=== PATIENT | male | born 1960 | race Caucasian/White ===

== ENCOUNTER 2024-10-09 00:15 | Outpatient (CLI) | payer MEDICARE, SELFPAY ==
--- NOTE | 2024-10-09 07:30 | DI.US_ITS ---
APPROVED REPORT EXAM: Comprehensive 2D, Doppler, and color-flow Echocardiogram Patient Location: Out-Patient Grinding Wheel Operator: Sara Powers RDCS (AE) Indications: Cardiomyopathy, ASCVD Other Information Study Quality: Fair. Technically limited study due to body habitus. Conclusion Normal left ventricular wall thickness and chamber size. Ejection fraction biplane is 32%. Visually EF with appears to be 35 to 40% with inferoapical apical and anteroapical akinesis. The septum is hypocontractile Normal right ventricular size and function Both atria are normal in size There are no structural valvular abnormalities Mild to moderate mitral regurgitation Wall motion Left Ventricle The left ventricle is normal size. Left ventricular systolic function is moderately decreased. There is normal left ventricular wall thickness. Regional wall motion abnormalities are noted. There is no ventricular septal defect visualized. LVEF is 32%. Right Ventricle Right ventricle is grossly normal in size. Right ventricular systolic function is grossly normal. Atria The left atrium size is normal. The right atrium size is normal. The interatrial septum is intact with no evidence for an atrial septal defect. Aortic Valve The aortic valve is normal in structure. Aortic valve is trileaflet. There is no aortic valvular stenosis. No aortic regurgitation is present. Mitral Valve The mitral valve is normal in structure. No evidence of mitral valve stenosis. Mild to moderate mitral regurgitation. Tricuspid Valve The tricuspid valve is normal in structure. There is no tricuspid valve stenosis. Trace tricuspid regurgitation. Unable to assess PA pressure. Pulmonic Valve The pulmonary valve is normal in structure. There is no pulmonic valvular stenosis. There is no pulmonic valvular regurgitation. Great Vessels The aortic root is normal in size. The ascending aorta is normal in size. Ascending aorta is not well visualized. IVC is normal in size and collapses >50% with inspiration. Pericardium There is no pericardial effusion. 2D Dimensions IVSD d PLAX 0.96 cm M: 0.6-1.2 Ao Root d 3.20 cm M: 3.1 - 3.7 LVPW d PLAX 0.96 cm M: 0.6 - 1.2 Ao Asc Diam d 2.89 cm M: 2.6 - 3.4 LVID d PLAX 5.48 cm M: 4.2 - 5.8 LVDs 4.70 cm M: 2.5 - 4.0 LV EF Teichholz 30.0 % FS 14.23 % LV EDV (Teich) 146.0 mL LV ESV (Teich) 102.3 mL M-Mode TAPSE 2.09 cm (M/F) >1.7 Auto EF LV EDV A4C 225.8 mL LV EDV A2C 183.9 mL LV EDV BP 206.2 mL LV ESV A4C 155.2 mL LV ESV A2C 123.9 mL LV ESV BP 140.4 mL LVEF(%) A4C 31.3 % LVEF(%) A2C 32.6 % LVEF(%) BP 31.9 % LV SV A4C 70.6 ml LV SV A2C 59.9 ml LV SV BP 65.7 ml LV CO A4C 3.7 L/min LV CO A2C 2.9 L/min LV CO BP 3.3 L/min HR A4C 51.88 BPM HR A2C 47.87 BPM LV EDV Index (BP) LA Volume LA Length A4C 5.1 cm LA Length A2C 5.7 cm LA Area A4C s 17.91 cm2 LA Area A2C s 22.25 cm2 LA Vol A4C A-L 53.22 mL LA Vol A2C A-L 74.34 mL LA Vol Biplane A-L 66.1 mL LA Vol/BSA A4C A-L LA Vol/BSA A2C A-L LA Vol/BSA BP A-L 29.8 mL/m2 LA Vol A4C MOD 50.0 mL LA Vol A2C MOD 69.5 mL LA Vol BP MOD 61.8 mL RA Volume RA Area A4C 14.2 cm2 RA ESV A4C (A-L) 42.4mL RA Vol/BSA A4C A-L RA Length A4C 4.1 cm RA ESV A4C (MOD) 38.5mL LV Diastology MV E' medial 0.054 (>0.07 m/s) MV E Vmax 0.78 (0.4-1.3 m/s) MV E/E' MED 14.50 (<14) MV A Vmax 0.70 (0.4-1.3 m/s) MV E' lateral 0.033 (>0.1 m/s) E/A Ratio 1.1 MV E/E' LAT 23.66 (<14) MV E' Average 0.043 m/s MV E/E'(average) 17.98 Aortic Valve AoV Vmax 1.19 m/s LVOT Vmax 0.94 m/s AoV Peak Grad 5.7 mmHg LVOT Peak Grad 3.5 mmHg AoV Area (Vmax) 2.63 cm2 LVOT VTI 0.251 m AoV VTI 0.311 m LVOT Mean Grad 2.0 mmHg AoV Mean Ross. 0.80 m/s LVOT SV 83.94 mL AoV Mean Grad 3.0 mmHg LVOT Diam s 2.05 cm AoV Area (VTI) 2.70 cm2 AV Regurg Peak Gr. 5.68 mmHg Velocity Ratio 0.79 Mitral Valve MV DT 168 (160-240 msec) MV Vmax TIPS 0.94 m/s MV Mean Grad 1.3 (<2mmHg) MV VTI 0.382 m Pulmonary Valve PV Vmax 0.65 (0.5-1.5 m/s) RVOT Vmax 0.60 m/s PV Peak Grad 1.7 mmHg RVOT Peak Gr. 1.4 mmHg PV Mean Ross 0.48 m/s RVOT VTI 0.162 m PV Mean Grad 1.1 mmHg RVOT Mean Gr. 0.9 mmHg Tricuspid Valve TV S' 0.10 m/s
== END 2024-10-09 00:35 ==
PROVIDERS: PCP Family Medicine; Visit Provider Internal Medicine Cardiovascular Disease
DX: I25.5 Ischemic cardiomyopathy (principal)
CPT/HCPCS: 93306